=== PATIENT | male | born 1950 | race Caucasian/White ===

== ENCOUNTER 2023-04-25 18:17 | Inpatient (IN) ==
[2023-04-25] MEDS ORDERED: Lactated Ringers 1000 ml BAG 1,000 ML IV ONE (18:30)
[2023-04-25] MEDS ORDERED: Famotidine IV 10 MG/ML 2 ml VIAL (20 mg) IV SLOW PU ONE (18:46)
[2023-04-25 18:54] LABS: ABS Eosinophils 0.1 10^3/uL (0.0-0.5); ABS Lymphocytes 0.7 10^3/uL (1.0-4.8); ABS Monocytes 0.6 10^3/uL (0.0-1.1); ABS Neutrophils 4.5 10^3/uL (1.5-7.6); Eosinophil % 1.7 %; Hematocrit 32.3 % (38-53); Hemoglobin 11.2 g/dL (13.2-16.3); Mean Corpuscular Hgb Conc 34.6 g/dL (31-36); Mean Corpuscular Volume 101.4 fL (80-97); Platelet Count 220 10^3/uL (150-450); Red Blood Count 3.19 10^6/uL (4.06-5.63); Red Cell Distribution Width 13.4 % (12-17); White Blood Count 5.9 10^3/uL (3.6-10.2)
[2023-04-25 19:23] LABS: ALT 21 U/L (7-52); Albumin 3.5 g/dL (3.2-5.2); Albumin/Globulin Ratio 1.1 (1-3); Alkaline Phosphatase 49 U/L (35-149); Blood Urea Nitrogen 17 mg/dL (6-24); CO2 Carbon Dioxide 17 mmol/L (22-32); Calcium 9.4 mg/dL (8.6-10.3); Chloride 106 mmol/L (101-111); Creatinine, Serum 1.56 mg/dL (0.67-1.17); Globulin 3.3 g/dL (2-4); Glucose 91 mg/dL (70-100); Sodium 139 mmol/L (135-145); Total Protein 6.8 g/dL (6.4-8.9); eGFR CKD-EPI 46.9 (>60)
[2023-04-25 19:27] LABS: Anion Gap 16 mmol/L (2-16)
[2023-04-25] MEDS ORDERED: Heparin 5000 UNITS/ML 1 mL VIAL SUBCUT ONE (20:13)
[2023-04-25 20:49] LABS: Potassium Redraw 3.4 mmol/L (3.5-5.0)
[2023-04-25] MEDS: NS 0.9% 1000 ml BAG 1,000 ML IV SCH (21:28)
[2023-04-25] MEDS: KCL 20 MEQ/100 ML IVPREMIX 20 MEQ/100 ML BAG IV SCH (22:48)
[2023-04-26] MEDS: KCL 20 MEQ/100 ML IVPREMIX 20 MEQ/100 ML BAG IV SCH (01:02)
[2023-04-26] MEDS: Levothyroxine 100 MCG/5 ML VIAL IV SCH (06:34)
[2023-04-26 07:17] LABS: ABS Basophils 0.1 10^3/uL (0.0-0.1); ABS Eosinophils 0.2 10^3/uL (0.0-0.5); ABS Monocytes 0.5 10^3/uL (0.0-1.1); ABS Neutrophils 3.6 10^3/uL (1.5-7.6); Eosinophil % 3.3 %; Hematocrit 33.2 % (38-53); Hemoglobin 11.4 g/dL (13.2-16.3); Lymphocyte % 18.4 %; Mean Corpuscular Hemoglobin 35.4 pg (27-33); Mean Corpuscular Hgb Conc 34.4 g/dL (31-36); Mean Corpuscular Volume 102.7 fL (80-97); Mean Platelet Volume 10.2 fL (7.5-11.2); Platelet Count 190 10^3/uL (150-450); Red Blood Count 3.23 10^6/uL (4.06-5.63); Red Cell Distribution Width 13.3 % (12-17); White Blood Count 5.3 10^3/uL (3.6-10.2)
[2023-04-26 07:19] LABS: ABS Nucleated RBC 0.01 10^3/ul; Nucleated Red Blood Cells % 0.2 /100 WBC (0.0-0.4)
[2023-04-26 07:32] LABS: Creatinine, Serum 1.16 mg/dL (0.67-1.17); Magnesium 1.4 mg/dL (1.9-2.7); Phosphorus 2.9 mg/dL (2.5-5.0); Potassium 3.8 mmol/L (3.5-5.0); eGFR CKD-EPI 66.9 (>60)
[2023-04-26] MEDS ORDERED: Magnesium Sulf 4 GM/100 ML IV 4,000 MG/100 ML BAG IVPB ONE (09:03)
[2023-04-26] MEDS: NS 0.9% 1000 ml BAG 1,000 ML IV SCH (09:13)
[2023-04-26 09:34] LABS: INR 1.15 (0.88-1.18)
[2023-04-26] MEDS: D5W 1/2 NS 1000 ml BAG 1,000 ML IV SCH (19:43)
[2023-04-27] MEDS: D5W 1/2 NS 1000 ml BAG 1,000 ML IV SCH ×2 (04:36→11:36)
[2023-04-27 06:10] LABS: ABS Eosinophils 0.3 10^3/uL (0.0-0.5); ABS Lymphocytes 1.3 10^3/uL (1.0-4.8); ABS Monocytes 0.5 10^3/uL (0.0-1.1); ABS Neutrophils 3.4 10^3/uL (1.5-7.6); Eosinophil % 5.8 %; Hematocrit 32.5 % (38-53); Hemoglobin 11.3 g/dL (13.2-16.3); Lymphocyte % 23.2 %; Mean Corpuscular Hemoglobin 34.7 pg (27-33); Mean Corpuscular Hgb Conc 34.9 g/dL (31-36); Mean Corpuscular Volume 99.6 fL (80-97); Mean Platelet Volume 9.7 fL (7.5-11.2); Nucleated Red Blood Cells % 0.1 /100 WBC (0.0-0.4); Platelet Count 218 10^3/uL (150-450); Red Blood Count 3.27 10^6/uL (4.06-5.63); White Blood Count 5.6 10^3/uL (3.6-10.2)
[2023-04-27 06:15] LABS: INR 1.06 (0.88-1.18)
[2023-04-27 06:23] LABS: Calcium 8.6 mg/dL (8.6-10.3); Creatinine, Serum 1.13 mg/dL (0.67-1.17); Magnesium 1.8 mg/dL (1.9-2.7); Potassium 3.4 mmol/L (3.5-5.0); eGFR CKD-EPI 69.1 (>60)
[2023-04-27] MEDS: Levothyroxine 100 MCG/5 ML VIAL IV SCH (06:38)
[2023-04-27] MEDS ORDERED: Magnesium Sulfate 2 gm BAG 2 GM/50 ML BAG IVPB ONE (07:17)
[2023-04-27] MEDS: KCL 20 MEQ/100 ML IVPREMIX 20 MEQ/100 ML BAG IV SCH ×3 (08:49→14:48)
[2023-04-27] MEDS ORDERED: Midazolam 2 mg/2 ml VIAL 1 mg/ml 2 ml VIAL (2 mg) ONE (12:03)
[2023-04-27] MEDS ORDERED: Glucagon 1 mg VIAL KIT ONE (12:04)
[2023-04-27] MEDS ORDERED: Lidocaine 2% JELLY 6 ML Topical TOPICAL ONE (12:04)
[2023-04-27] MEDS ORDERED: ceFAZolin 1 GM ADVAN 1 GM ADDV.VIAL IVPB ONE (12:04)
[2023-04-27] MEDS ORDERED: fentaNYL 100 mcg/2 ml 50 MCG/ML VIAL ONE (12:04)
[2023-04-27] MEDS ORDERED: Bupivacaine 0.5% SDV PF 30ML VIAL ONE (12:50)
[2023-04-27] MEDS ORDERED: D5W 1/2 NS 1000 ml BAG 1,000 ML IV SCH (18:00)
[2023-04-27] MEDS: Enoxaparin 40 MG/0.4 ML SYR SUBCUT SCH (22:43)
[2023-04-28] MEDS ORDERED: Morphine 2 MG/ML SYRINGE IV PRN (02:53)
[2023-04-28 06:47] LABS: ABS Eosinophils 0.3 10^3/uL (0.0-0.5); ABS Lymphocytes 0.9 10^3/uL (1.0-4.8); ABS Monocytes 0.6 10^3/uL (0.0-1.1); ABS Neutrophils 3.4 10^3/uL (1.5-7.6); Eosinophil % 5.1 %; Hematocrit 31.1 % (38-53); Hemoglobin 10.9 g/dL (13.2-16.3); Lymphocyte % 16.9 %; Mean Corpuscular Hemoglobin 35.3 pg (27-33); Mean Corpuscular Hgb Conc 35.1 g/dL (31-36); Mean Corpuscular Volume 100.6 fL (80-97); Mean Platelet Volume 9.4 fL (7.5-11.2); Platelet Count 207 10^3/uL (150-450); Red Blood Count 3.09 10^6/uL (4.06-5.63); White Blood Count 5.1 10^3/uL (3.6-10.2)
[2023-04-28 07:11] LABS: Calcium 8.8 mg/dL (8.6-10.3); Creatinine, Serum 0.96 mg/dL (0.67-1.17); Magnesium 1.7 mg/dL (1.9-2.7); Potassium 3.6 mmol/L (3.5-5.0)
[2023-04-28] MEDS ORDERED: Magnesium Sulfate IV 3 GM in NS 0.9% 100 ml BAG 100 ML IVPB ONE (07:34)
[2023-04-28] MEDS: Levothyroxine 100 MCG/5 ML VIAL IV SCH (09:47)
[2023-04-28] MEDS: KCL 20 MEQ/100 ML IVPREMIX 20 MEQ/100 ML BAG IV SCH ×2 (10:31→12:41)
[2023-04-28] MEDS: Enoxaparin 40 MG/0.4 ML SYR SUBCUT SCH (17:37)
[2023-04-28 23:08] VITALS: BP 127/77
== END 2023-04-28 23:20 | disposition short-term general hospital (02) | DRG 391 ==
LOC: ED 18:17 → INTOOBSV 20:11 → EDHOLD 20:11 → SUATTDRO 20:11 → MEDTELE 22:43
PROVIDERS: ADMIT Student in an Organized Health Care Education/Training Program; ATTEND Internal Medicine

== ENCOUNTER 2023-05-19 23:11 | Inpatient (IN) ==
[2023-05-20 01:22] LABS: ABS Basophils 0.1 10^3/uL (0.0-0.1); ABS Eosinophils 0.1 10^3/uL (0.0-0.5); ABS Lymphocytes 1.2 10^3/uL (1.0-4.8); ABS Monocytes 0.8 10^3/uL (0.0-1.1); ABS Neutrophils 7.2 10^3/uL (1.5-7.6); ABS Nucleated RBC 0.01 10^3/ul; Eosinophil % 0.9 %; Hematocrit 30.8 % (38-53); Hemoglobin 10.6 g/dL (13.2-16.3); Lymphocyte % 12.8 %; Mean Corpuscular Hemoglobin 34.2 pg (27-33); Mean Corpuscular Hgb Conc 34.3 g/dL (31-36); Mean Corpuscular Volume 99.6 fL (80-97); Mean Platelet Volume 8.4 fL (7.5-11.2); Nucleated Red Blood Cells % 0.1 /100 WBC (0.0-0.4); Platelet Count 439 10^3/uL (150-450); Red Cell Distribution Width 13.2 % (12-17); White Blood Count 9.3 10^3/uL (3.6-10.2)
[2023-05-20 01:38] LABS: Activated Partial Thrombo Time 31.2 seconds (26.0-38.0); INR 1.14 (0.88-1.18)
[2023-05-20 01:56] LABS: Albumin 3.6 g/dL (3.2-5.2); Albumin/Globulin Ratio 0.9 (1-3); Creatinine, Serum 1.14 mg/dL (0.67-1.17); Globulin 4.1 g/dL (2-4); Potassium 4.7 mmol/L (3.5-5.0); Total Bilirubin 0.4 mg/dL (0.2-1.0); Total Protein 7.7 g/dL (6.4-8.9); eGFR CKD-EPI 68.3 (>60)
[2023-05-20] MEDS ORDERED: Morphine 4 MG/ML VIAL (1 ml) IV ONE (03:38)
[2023-05-20] MEDS ORDERED: NS 0.9% 1000 ml BAG 1,000 ML IV ONE (03:39)
[2023-05-20] MEDS ORDERED: Ondansetron 4 mg VIAL 2 MG/ML 2 ml VIAL IV PRN (04:29)
[2023-05-20 04:53] LABS: Hematocrit 32.6 % (38-53); Hemoglobin 11.2 g/dL (13.2-16.3)
[2023-05-20] MEDS ORDERED: Acetaminophen IV 1 GM/100ML 1,000 MG/100 ML BAG IV ONE (09:47)
[2023-05-20] MEDS: Acetaminophen IV 1 GM/100ML 1,000 MG/100 ML BAG IV PRN ×2 (09:49→21:07)
[2023-05-20 09:52] LABS: Hematocrit 27.8 % (38-53); Hemoglobin 9.7 g/dL (13.2-16.3)
[2023-05-20] MEDS: Lactated Ringers 1000 ml BAG 1,000 ML IV ONE ×2 (09:53→10:54)
[2023-05-20 17:14] LABS: Hematocrit 27.3 % (38-53); Hemoglobin 9.5 g/dL (13.2-16.3)
[2023-05-20 22:01] LABS: Hematocrit 27.4 % (38-53); Hemoglobin 9.6 g/dL (13.2-16.3)
[2023-05-21] MEDS: Acetaminophen IV 1 GM/100ML 1,000 MG/100 ML BAG IV PRN ×2 (08:54→18:29)
[2023-05-21] MEDS ORDERED: Lactated Ringers 1000 ml BAG 1,000 ML IV ONE (17:26)
[2023-05-22] MEDS: Acetaminophen IV 1 GM/100ML 1,000 MG/100 ML BAG IV PRN ×3 (01:09→18:25)
[2023-05-22 06:08] LABS: ABS Eosinophils 0.3 10^3/uL (0.0-0.5); ABS Lymphocytes 1.1 10^3/uL (1.0-4.8); ABS Monocytes 0.7 10^3/uL (0.0-1.1); ABS Neutrophils 4.1 10^3/uL (1.5-7.6); ABS Nucleated RBC 0.01 10^3/ul; Eosinophil % 4.3 %; Hematocrit 26.3 % (38-53); Hemoglobin 9.6 g/dL (13.2-16.3); Lymphocyte % 17.6 %; Mean Corpuscular Hemoglobin 35.2 pg (27-33); Mean Corpuscular Hgb Conc 36.4 g/dL (31-36); Mean Corpuscular Volume 96.7 fL (80-97); Mean Platelet Volume 7.8 fL (7.5-11.2); Nucleated Red Blood Cells % 0.2 /100 WBC (0.0-0.4); Platelet Count 403 10^3/uL (150-450); Red Blood Count 2.72 10^6/uL (4.06-5.63); Red Cell Distribution Width 12.8 % (12-17); White Blood Count 6.2 10^3/uL (3.6-10.2)
[2023-05-22 06:23] LABS: Calcium 9.1 mg/dL (8.6-10.3); Creatinine, Serum 0.91 mg/dL (0.67-1.17); Potassium 4.1 mmol/L (3.5-5.0); eGFR CKD-EPI 89.5 (>60)
[2023-05-22] MEDS ORDERED: Lactated Ringers 1000 ml BAG 1,000 ML IV ONE (15:16)
[2023-05-22] MEDS ORDERED: Lidocaine 1% VIAL 10 MG/ML VIAL 30 ML ONE (16:12)
[2023-05-23] MEDS: Acetaminophen IV 1 GM/100ML 1,000 MG/100 ML BAG IV PRN ×2 (01:54→08:40)
[2023-05-23 06:30] LABS: Hematocrit 26.7 % (38-53); Hemoglobin 9.4 g/dL (13.2-16.3)
[2023-05-23 06:43] LABS: Calcium 8.8 mg/dL (8.6-10.3); Creatinine, Serum 0.9 mg/dL (0.67-1.17); Potassium 3.5 mmol/L (3.5-5.0); eGFR CKD-EPI 90.7 (>60)
[2023-05-23 10:41] VITALS: BP 105/63
== END 2023-05-23 12:55 | disposition home or self-care (01) | DRG 378 ==
LOC: ED 23:11 → SUATTDRO 05-20 04:29 → EDHOLD 05-20 04:29 → MEDTELE 05-20 16:35
PROVIDERS: ADMIT Internal Medicine; ATTEND Family Medicine